=== PATIENT | male | born 1995 | race Caucasian/White ===

== ENCOUNTER 2016-06-11 02:08 | Emergency (ER) | payer MEDICARE, OTHER | END 2016-06-11 05:09 | disposition home or self-care (01) | LOC: FER 02:08 | DX: J10.1 Influenza due to other identified influenza virus with other respiratory manifestations (principal) | CPT/HCPCS: 87450; 87804; 87899; 99283 ==

== ENCOUNTER 2016-06-30 22:20 | Emergency (ER) | payer MEDICARE, OTHER | END 2016-07-01 00:27 | disposition home or self-care (01) | LOC: FER 22:20 | DX: S66.912A Strain of unspecified muscle, fascia and tendon at wrist and hand level, left hand, initial encounter (principal); F32.9 Major depressive disorder, single episode, unspecified; F17.210 Nicotine dependence, cigarettes, uncomplicated; X50.0XXA Overexertion from strenuous movement or load, initial encounter; Y93.89 Activity, other specified; Y92.69 Other specified industrial and construction area as the place of occurrence of the external cause; Y99.0 Civilian activity done for income or pay | CPT/HCPCS: 73090; 73110; 99283 ==